=== PATIENT | female | born 1960 | race Hispanic/Latino ===

== ENCOUNTER 2020-03-18 16:41 | Emergency (ER) | payer OTHER ==
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
== END 2020-03-18 18:06 | disposition home or self-care (01) ==
LOC: ERS 16:41
DX: S40.012A Contusion of left shoulder, initial encounter (principal); M19.90 Unspecified osteoarthritis, unspecified site; V49.9XXA Car occupant (driver) (passenger) injured in unspecified traffic accident, initial encounter